=== PATIENT | female | born 1990 | race American Indian/Alaskan Native ===

== ENCOUNTER 2016-08-20 10:55 | Emergency (ER) | payer SELFPAY ==
[2016-08-20 13:17] LABS: Alanine Aminotransferase 7 units/L (7-56); Albumin 3.8 g/dL (3.9-5); Albumin/Globulin Ratio 0.9 %; Alkaline Phosphatase 80 units/L (35-129); Bilirubin,Total 0.8 mg/dL (0.1-1.2); Blood Urea Nitrogen 6 mg/dL (7-17); Calcium 8.9 mg/dL (8.4-10.2); Carbon Dioxide 25 mmol/L (22-30); Glucose 96 mg/dL (65-100); Lipase 16 units/L (13-60); Total Protein 8.2 g/dL (6.3-8.2)
[2016-08-20 13:18] LABS: Anion Gap 20 mmol/L; Chloride 96.7 mmol/L (98-107); Potassium 3.4 mmol/L (3.6-5.0); Sodium 138 mmol/L (137-145)
[2016-08-20 13:32] LABS: Bacteria,Urine 2+ /HPF (Negative); Bilirubin,Urine NEG (Negative); Blood,Urine MOD (Negative); Ketones,Urine 20 mg/dL (Negative); Leukocyte Esterase,Urine LG (Negative); Mucus,Urine FEW /HPF; Nitrite,Urine NEG (Negative)
[2016-08-20 13:33] LABS: WBC,Urine > 182.0 /HPF (0.0-6.0)
[2016-08-20 14:08] LABS: Basophils % (Auto) 0.9 % (0.0-1.8); Hematocrit 35.8 % (30.3-42.9); Hemoglobin 11.6 gm/dl (10.1-14.3); Mean Corpuscular HGB Conc 33 % (30-34); Mean Corpuscular Hemoglobin 26 pg (28-32); Mean Corpuscular Volume 80 fl (79-97); Platelet Count 338 K/mm3 (140-440); Red Blood Count 4.46 M/mm3 (3.65-5.03); Red Cell Distribution Width 15.5 % (13.2-15.2); White Blood Count 15.2 K/mm3 (4.5-11.0)
[2016-08-20] MEDS ORDERED: TYLENOL ONE (21:59)
[2016-08-20] MEDS ORDERED: TYLENOL PO ONE (22:02)
[2016-08-20] MEDS ORDERED: NACL 0.9% 1000 ML 1,000 ML IV ONE (23:40)
[2016-08-20] MEDS ORDERED: ZOFRAN IV ONE (23:40)
[2016-08-20] MEDS ORDERED: TORADOL IV ONE (23:40)
[2016-08-20] MEDS ORDERED: ROCEPHIN/NS 1 GM/50 ML 1 GM/50 ML BAG IV ONE (23:41)
--- NOTE | 2016-08-21 01:03 | Cat Scan Report ---
FINAL REPORT EXAM: CT ABDOMEN PELVIS WO CON HISTORY: right flank pain TECHNIQUE: Spiral CT scanning of the abdomen and pelvis. No oral or IV contrast administered. Multiplanar reformations. PRIORS: None. FINDINGS: Abdomen: Visualized lung bases unremarkable. Solid organ evaluation is limited due to lack of IV contrast. Mild, asymmetric enlargement and indistinct cortical margins of the right kidney, with some perinephric fat stranding. No intrarenal calculi, significant hydronephrosis or abnormal perinephric fluid collection. Few, tiny gallstones without significant pericholecystic fluid. Remainder of visualized abdominal parenchyma grossly unremarkable. Pelvis: Probable phlebolith projects in the left lower pelvis. No appreciable calcifications or significant dilatation in the distal ureters. Bowel grossly unremarkable. Appendix is not confidently identified. Very small amount of mildly complex or possibly hemorrhagic fluid in the pelvis. No loculated fluid collection. Abdominal aorta non-aneurysmal. IMPRESSION: 1. Findings which may represent nonspecific postinflammatory change in the right kidney, including pyelonephritis or UTI. Correlate clinically. 2. No evidence of urolithiasis or significant hydronephrosis. 3. Cholelithiasis. 4. Findings which may represent sequelae of ovarian follicle or cyst rupture.
[2016-08-21 01:08] VITALS: BP 102/63
--- NOTE | 2016-08-21 01:08 | Emergency Department Report ---
ED General Adult HPI - General Chief complaint: Abdominal Pain Stated complaint: SIDE/ABD PAIN Time Seen by Provider: 08/20/16 23:39 Source: patient Mode of arrival: Ambulatory Limitations: No Limitations - History of Present Illness Initial comments: 25-year-old female presents to the ED complaining about lower abdominal pain as well as bilateral flank pain that started 5 days ago. Patient states that it started in the lower abdomen and now slowly spreading to the flank area. States that pain is worse today. Patient states that she is having dysuria as well as urgency and frequency of urination. States that the pain started abruptly with associated nausea which is currently not present. Denies taking medication. Severity scale (0 -10): 4 - Related Data Previous Rx's Medication Instructions Recorded Last Taken Type Acetaminophen/Codeine [Tylenol #3] 1 tab PO Q6H PRN #20 tab 01/26/15 Unknown Rx Famotidine [Pepcid] 20 mg PO BID #40 tablet 01/26/15 Unknown Rx Ibuprofen [Motrin] 600 mg PO Q8H PRN #40 tablet 01/26/15 Unknown Rx Promethazine [Phenergan TAB] 25 mg PO Q6HR PRN #20 tab 01/26/15 Unknown Rx Sulfamethoxazole/Trimethoprim 1 each PO BID #14 tablet 01/26/15 Unknown Rx [Bactrim DS TAB] metroNIDAZOLE 0.75% [Vandazole 1 applicator VG QHS #1 tube 06/08/15 Unknown Rx 0.75% VAGINAL] Ciprofloxacin HCl [Ciprofloxacin 500 mg PO Q12H #20 tab 08/21/16 Unknown Rx TAB] Ibuprofen [Motrin] 600 mg PO Q8H PRN #20 tablet 08/21/16 Unknown Rx Ondansetron [Zofran Odt] 4 mg PO TID #14 tab.rapdis 08/21/16 Unknown Rx Allergies Allergy/AdvReac Type Severity Reaction Status Date / Time No Known Allergies Allergy Verified 01/26/15 07:45 ED Review of Systems ROS: Stated complaint: SIDE/ABD PAIN Other details as noted in HPI Constitutional: denies: chills, fever Eyes: denies: eye pain, eye discharge, vision change ENT: denies: ear pain, throat pain Respiratory: denies: cough, shortness of breath, wheezing Cardiovascular: denies: chest pain, palpitations Endocrine: no symptoms reported Gastrointestinal: denies: abdominal pain, nausea, diarrhea Genitourinary: urgency, dysuria, frequency. denies: discharge Musculoskeletal: back pain. denies: joint swelling, arthralgia Skin: denies: rash, lesions Neurological: denies: headache, weakness, paresthesias Psychiatric: denies: anxiety, depression Hematological/Lymphatic: denies: easy bleeding, easy bruising ED Past Medical Hx - Past Medical History Previous Medical History?: No - Surgical History Past Surgical History?: No - Social History Smoking Status: Current Every Day Smoker Substance Use Type: None - Medications Home Medications: Home Medications Medication Instructions Recorded Confirmed Last Taken Type Acetaminophen/Codeine [Tylenol #3] 1 tab PO Q6H PRN #20 tab 01/26/15 Unknown Rx Famotidine [Pepcid] 20 mg PO BID #40 tablet 01/26/15 Unknown Rx Ibuprofen [Motrin] 600 mg PO Q8H PRN #40 tablet 01/26/15 Unknown Rx Promethazine [Phenergan TAB] 25 mg PO Q6HR PRN #20 tab 01/26/15 Unknown Rx Sulfamethoxazole/Trimethoprim 1 each PO BID #14 tablet 01/26/15 Unknown Rx [Bactrim DS TAB] metroNIDAZOLE 0.75% [Vandazole 1 applicator VG QHS #1 tube 06/08/15 Unknown Rx 0.75% VAGINAL] Ciprofloxacin HCl [Ciprofloxacin 500 mg PO Q12H #20 tab 08/21/16 Unknown Rx TAB] Ibuprofen [Motrin] 600 mg PO Q8H PRN #20 tablet 08/21/16 Unknown Rx Ondansetron [Zofran Odt] 4 mg PO TID #14 tab.rapdis 08/21/16 Unknown Rx ED Physical Exam - General Limitations: No Limitations General appearance: alert, in no apparent distress - Head Head exam: Present: atraumatic, normocephalic - Eye Eye exam: Present: normal appearance - ENT ENT exam: Present: mucous membranes moist - Neck Neck exam: Present: normal inspection - Respiratory Respiratory exam: Present: normal lung sounds bilaterally. Absent: respiratory distress - Cardiovascular Cardiovascular Exam: Present: regular rate, normal rhythm. Absent: systolic murmur, diastolic murmur, rubs, gallop - GI/Abdominal GI/Abdominal exam: Present: soft, tenderness (suprapubic region), normal bowel sounds. Absent: distended, guarding, rebound, rigid - Extremities Exam Extremities exam: Present: normal inspection - Back Exam Back exam: Present: normal inspection, CVA tenderness (R) (minimal), CVA tenderness (L) (minimal) - Neurological Exam Neurological exam: Present: alert, oriented X3 - Psychiatric Psychiatric exam: Present: normal affect, normal mood - Skin Skin exam: Present: warm, dry, intact, normal color. Absent: rash ED Course Vital Signs 08/20/16 08/20/16 08/21/16 12:04 23:17 01:08 Temperature 99.8 F H 98.7 F Pulse Rate 105 H 89 86 Respiratory 16 18 18 Rate Blood Pressure 106/70 Blood Pressure 113/60 102/63 [Right] O2 Sat by Pulse 99 98 100 Oximetry ED Medical Decision Making - Lab Data Result diagrams: 08/20/16 12:39 08/20/16 12:39 Vital Signs 08/20/16 08/20/16 08/21/16 12:04 23:17 01:08 Temperature 99.8 F H 98.7 F Pulse Rate 105 H 89 86 Respiratory 16 18 18 Rate Blood Pressure 106/70 Blood Pressure 113/60 102/63 [Right] O2 Sat by Pulse 99 98 100 Oximetry Laboratory Results - last 24 hr 08/20/16 08/20/16 08/20/16 12:33 12:39 12:39 WBC 15.2 H RBC 4.46 Hgb 11.6 Hct 35.8 MCV 80 MCH 26 L MCHC 33 RDW 15.5 H Plt Count 338 Lymph % (Auto) 12.0 L [place] % (Auto) 10.7 H Eos % (Auto) 0.0 Baso % (Auto) 0.9 Lymph # 1.8 [place] # 1.6 H Eos # 0.0 Baso # 0.1 Seg Neutrophils % 76.4 H Seg Neutrophils # 11.6 H Sodium 138 Potassium 3.4 L Chloride 96.7 L Carbon Dioxide 25 Anion Gap 20 BUN 6 L Creatinine 1.0 Estimated GFR > 60 BUN/Creatinine Ratio 6.00 Glucose 96 Calcium 8.9 Total Bilirubin 0.8 AST 11 ALT 7 Alkaline Phosphatase 80 Total Protein 8.2 Albumin 3.8 L Albumin/Globulin Ratio 0.9 Lipase 16 Urine Color Yellow Urine Turbidity Cloudy Urine pH 6.[address] [place] 1.011 Urine Protein 100 mg/dl Urine Glucose (UA) Neg Urine Ketones 20 Urine Blood Mod Urine Nitrite Neg Ur Reducing Substances Not Reportable Urine Bilirubin Neg Urine Ictotest Not Reportable Urine Urobilinogen 2.0 Ur Leukocyte Esterase Lg Urine WBC (Auto) > 182.0 H Urine RBC (Auto) 25.0 U Epithel Cells (Auto) 4.0 Urine Bacteria (Auto) 2+ Urine Mucus Few Urine HCG, Qual Negative - Medical Decision Making Patient states significant improvement in symptoms. Vital signs have improved. Patient is resting comfortably, smiling and does not appear to be in distress. Will discharge patient with outpatient antibiotics and Motrin. CT shows no sign kidney stone. will treat for pyelo - Differential Diagnosis kidney stone Critical care attestation.: If time is entered above; I have spent that time in minutes in the direct care of this critically ill patient, excluding procedure time. ED Disposition Clinical Impression: Acute UTI, Acute pyelonephritis Disposition: DISCHARGED TO HOME OR SELFCARE Is pt being admited?: No Does the pt Need Aspirin: No Condition: Good Instructions: Abdominal Pain (ED) Additional Instructions: Take medication as prescribed. Drink plenty of fluids and follow-up with her primary care provider in one week. Prescriptions: Ciprofloxacin HCl [Ciprofloxacin TAB] 500 mg PO Q12H #20 tab Ibuprofen [Motrin] 600 mg PO Q8H PRN #20 tablet PRN Reason: Pain Ondansetron [Zofran Odt] 4 mg PO TID #14 tab.rapdis Referrals: BÁRBARA REBOLLAR MD [Primary Care Provider] - 3-5 Days OMA FRANK MD [Staff Physician] - 3-5 Days Forms: Work/School Release Form(ED) Time of Disposition: 01:16
== END 2016-08-21 02:27 | disposition home or self-care (01) ==
LOC: ED 10:55
DX: N39.0 Urinary tract infection, site not specified (principal); N10 Acute pyelonephritis; F17.200 Nicotine dependence, unspecified, uncomplicated
CPT/HCPCS: 36415; 74176; 80053; 81001; 81025; 83690; 85025; 96361; 96374; 96375; 99284; J0696; J1885; J2405; J7030